=== PATIENT | male | born 1995 | race Two or more races ===

== ENCOUNTER 2022-02-20 05:32 | Emergency (ER) | payer MEDICAID ==
[~2022-02-20] VITALS: Ht 152.4 cm; Wt 44.1 kg
[2022-02-20 07:35] VITALS: BP 115/73
== END 2022-02-20 08:03 | disposition home or self-care (01) ==
LOC: ER 05:32
DX: J06.9 Acute upper respiratory infection, unspecified (principal)
CPT/HCPCS: 70450